=== PATIENT | male | born 1990 | race Caucasian/White ===

== ENCOUNTER 2016-12-16 10:02 | Emergency (ER) | payer OTHER ==
[~2016-12-16] VITALS: Ht 182.9 cm; Wt 86.4 kg
[~2016-12-16 10:02] MED LIST: LEVO750T9 PO
[2016-12-16 10:04] VITALS: BP 142/90; PULSE 73; RESP 16; O2SAT 99
--- NOTE | 2016-12-16 11:29 | ED.REPORT ---
HPI-URI / Cough / Cold Date of Service Dec 16, 2016 ED Provider: Bronson Rutledge PA-C Miladys is an otherwise healthy 26-year-old male chief complaint of sore throat. Complains of alternating chills/feeling hot, nasal congestion, rhinorrhea, cough , myalgia throat that began relatively suddenly 3 days ago. He also reports several episodes of epistaxis from his right nostril, provoked by picking. Denies receiving a flu shot. Reports that his significant other and child are both sick. Admits smoking. States he is here because he needs a work note. Denies leg swelling, hemoptysis, recent trauma/surgery, shortness of breath, wheezing, chest pain, abdominal pain, vomiting. Nursing Notes Stated Complaint: SORE THROAT,HARD TO BREATHE,BODY ACHES Chief Complaint: FLU/Cold Symptoms Nursing Notes Reviewed: Yes Allergies: Coded Allergies: Penicillins (Verified Allergy, Severe, 02/05/16) Scheduled Clindamycin (Clindamycin) 300 Mg Capsule 300 MG PO QID Levofloxacin (Levaquin) 750 Mg Tablet 750 MG PO DAILY General Time Seen by MD: 11:08 Chief Complaint Sore throat Past Medical History Past Medical History chronic lower back pain Past Surgical History none reported Smoking History Current Every Day Smoker Social History Alcohol Use: Denies alcohol use Drug Use: THC Occupation lives with girlfriend, work at [employer] Ambulatory Status Independent Review of Systems Negative unless stated otherwise in history of present illness Physical Exam General: Well appearing, well developed, well nourished, no acute distress. Head: Atraumatic, normocephalic. No mastoid tenderness. Eyes: No scleral icterus or injection. No discharge. PERRL. Vision grossly intact. Ears: Pinna and tragus nontender with manipulation. External auditory canal patent, atraumatic and without discharge. Tympanic membrane mccormick, shiny and translucent without fluid, bulging, retraction or perforation. Hearing grossly intact. Nose: Symmetrical, nares patent without discharge. No frontal or maxillary sinus tenderness. Mouth/pharynx: normal dentition, mucus membranes moist. Tonsils 2+ and symmetrical, uvula midline. Pharynx noninjected, no cobblestoning or discharge. Voice clear. Neck: No tenderness or lymphadenopathy. Trachea midline. Respiratory: Regular rate and rhythm. Breath sounds present, clear to auscultation and equal bilaterally. No respiratory distress. No increased work of breathing, speaks in complete sentences. Cardiovascular: Regular rate and rhythm, without murmur, gallop or rub. No pedal edema. Gastrointestinal: Abdomen flat and non-tender without guarding or rebound. Bowel sounds normoactive. Skin: Warm and dry. Legs: Negative edema, calf size roughly equal [id number], negative calf tenderness, negative Homans sign. Neurological: Grossly nonfocal. Psychological: Alert and oriented. Speech appropriate, linear and logical. Behavior appropriate. Initial Vital Signs Vital Signs (First) Date Time Temp Pulse Resp B/P Pulse Ox O2 Delivery O2 Flow Rate FiO2 12/16/16 10:04 36.2 73 16 142/90 99 Initial VS: Reviewed, Vital signs normal Interpretation & Diagnostics Lab Results Interpretation Test 12/16/16 10:15 Hold Urine Received (Received) Re-Eval/Medical Decision Med Decision/Clinical Course Otherwise healthy 26-year-old male presents with a chief complaint of sore throat associated with flulike symptoms. Physical exam is generally reassuring. PE RC negative. I believe this is a viral upper respiratory infection as opposed to sinusitis, strep throat, pneumonia, PE, peritonsillar abscess, epiglottitis. Discharge patient with instructions for symptomatic care , primary care follow-up, emergency return precautions. The patient understands and agrees with plan Discharge & Departure Impression: Primary Impression: Upper respiratory infection URI type: unspecified viral URI Qualified Code: J06.9 - Acute upper respiratory infection, unspecified Additional Impression: Dental anomaly Disposition: Home Discharge Condition All VS Reviewed: Yes Condition: Stable Patient Instructions: Upper Respiratory Infection (ED) Additional Instructions: History and physical are reassuring that this is unlikely to be a condition such as pneumonia or strep throat that requires antibiotic treatment. I believe that you have a viral upper respiratory infection. Rest, drink small amounts of fluids throughout the day, and eat small amounts of food as tolerated. The treatment is largely symptomatic: I typically recommend doxylamine/ dextromethorphan (brand name: Robitussin Extra Strength Nighttime Cough DM) for use at night, which will help you sleep and reduce cough. If your pharmacy does not have this, ask your pharmacist to recommend an alternative. Pain and fever is best treated with 400 mg of ibuprofen (Advil, Motrin) every 6 hours, or 1000 mg of acetaminophen (Tylenol) every 6 hours. These drugs can be taken at the same time for more severe pain. Pseudoephedrine (Sudafed) taken in the morning will help relieve nasal congestion. In many pharmacies this is kept behind the counter, so ask the pharmacist. Cepacol lozenges are very helpful for sore throat. Follow-up with your primary care provider if your symptoms have not significantly improved in a week. Remember that sometimes a cough can take up to a month to completely resolve. Return to the emergency department for new or worsening symptoms including chest pain, shortness of breath, difficulty breathing or speaking. I also noted that you have a mass above your right upper teeth. It is quite firm, and I do not believe it will benefit from incision and drainage. I will provide you a prescription for clindamycin. Please follow-up with a dentist as soon as possible. Return to emergency department if you develop fever, watery diarrhea. Referrals: [facility] EDSupervising Provider for APC: Daniel Swain MD copies to: [facility] Bronson Rutledge PA-C Dec 16, 2016 11:29
[2016-12-16] MEDS ORDERED: CLIN-78 PO (11:31)
== END 2016-12-16 11:32 | disposition home or self-care (01) ==
LOC: SED 10:02
DX: J06.9 Acute upper respiratory infection, unspecified (principal); M26.30 Unspecified anomaly of tooth position of fully erupted tooth or teeth; F17.200 Nicotine dependence, unspecified, uncomplicated; Z88.0 Allergy status to penicillin

== ENCOUNTER 2017-05-09 18:25 | Emergency (ER) | payer OTHER ==
[~2017-05-09] VITALS: Ht 185.4 cm; Wt 90.9 kg
[~2017-05-09 18:25] MED LIST changes: +CLIN-78 PO
[2017-05-09 18:41] VITALS: BP 132/77; PULSE 76; RESP 16; O2SAT 98
--- NOTE | 2017-05-09 19:01 | ED.REPORT ---
HPI-Dental/Mouth Prob Date of Service May 09, 2017 ED Provider: Amanda Loza History of Present Illness: right sided dental swelling. dentist is at [facility]. 06/07 pain Nursing Notes Stated Complaint: ABSCESS TOOTH SWOLLEN FACE Chief Complaint: Dental Nursing Notes Reviewed: Yes Allergies: Coded Allergies: Penicillins (Verified Allergy, Severe, 05/09/17) Scheduled Clindamycin (Clindamycin) 300 Mg Capsule 300 MG PO QID Levofloxacin (Levaquin) 750 Mg Tablet 750 MG PO DAILY General Time Seen by MD: 18:53 Chief Complaint Other (abscess) Hx Obtained From: Patient Onset Occurred: Yesterday Symptom Duration: Since onset Past Medical History Past Medical History chronic lower back pain Past Surgical History none reported Smoking History Current Every Day Smoker Social History Alcohol Use: Denies alcohol use Drug Use: THC Occupation lives with girlfriend, work at [employer] 05/09/2017 Ambulatory Status Independent Review of Systems Basic Review of Systems Eyes: Vision NL, No discharge Hematologic: No bleeding, No bruising Psychiatric: Normal thought content Physical Exam Initial Vital Signs Vital Signs (First) Date Time Temp Pulse Resp B/P Pulse Ox O2 Delivery O2 Flow Rate FiO2 05/09/17 18:41 36.7 76 16 132/77 98 Room Air Initial VS: Reviewed, Vital signs normal General/Constitutional: Well-developed, Well-nourished Head / Eyes: Atraumatic, Normocephalic, PERRL Respiratory: Breath sounds normal, Clear to auscultation, No respiratory distress Cardiovascular: Regular rate & rhythm, Heart sounds normal, Intact distal pulses Abdomen / GI: Soft, Non-tender, No guarding, No rebound, No distention Back: No CVA tenderness Lymphatic: No lymphadenopathy Extremities: Vascular intact, Neuro intact, No swelling, No tenderness Skin: Warm, Dry, No cyanosis Neurologic: Alert, Oriented, Nonfocal Psychiatric: Mood/affect normal, Behavior normal, Normal thought content ENT: Atraumatic, Airway patent, Mucous membranes moist, Pharynx NL mild facial swelling. no extension into eye, able to open mouth fully Neck: Atraumatic, Supple, No meningismus, Full range of motion General/Constitutional: Awake, Alert, No acute distress Re-Eval/Medical Decision Med Decision/Clinical Course 26 year old male presents for evualation of dental swelling. No sign of danielle angina Discharge & Departure Primary Impression: Dental abscess Disposition: Home Patient Instructions: Dental Abscess (ED) Additional Instructions: You have swelling on the right upper gum area. You received clindamycin in the ER and toradol. Continue with the antibiotics and ibuproifen 800 mg up to 3 times a day. Also ice to the site 3 to 4 times a day. You can use hydrocodone 1 at night as needed for severe pain. Please use the dental resources to seek dental care. Referrals: [facility] (PCP) [facility] EDSupervising Provider for APC: Marifer Anthony MD copies to: OTHER,PHYSICIAN Amanda Loza May 09, 2017 19:01
[2017-05-09] MEDS ORDERED: _HYDROcodone/APAP 5-325 mg Tablet PO PRN ×2 (19:05→19:10)
[2017-05-09] MEDS ORDERED: Clindamycin Inj 900 MG in IV Premix 1 EACH IV ONE (19:10)
[2017-05-09 20:00] VITALS: BP 121/55; PULSE 50; RESP 14; O2SAT 97
[2017-05-09 20:31] VITALS: BP 125/80; PULSE 58; O2SAT 98
[2017-05-09] MEDS ORDERED: _Clindamycin 150 mg Capsule PO SCH ×2 (21:30)
== END 2017-05-09 20:47 | disposition home or self-care (01) ==
LOC: SED 18:25
DX: K04.7 Periapical abscess without sinus (principal); F17.200 Nicotine dependence, unspecified, uncomplicated; Z88.0 Allergy status to penicillin
CPT/HCPCS: 96365; 96375; 99284; J1885; J3490